=== PATIENT | male | born 1975 | race Caucasian/White ===

== ENCOUNTER 2021-09-14 23:21 | Emergency (ER) | payer OTHER ==
[2021-09-15 00:17] LABS: BASOPHIL 0.6 % (0-2); EOSINOPHIL 0.3 % (0-5); HCT 34.6 % (42.0-52.0); HGB 12.6 g/dl (13.2-18.0); LYMPHOCYTE 11.1 % (15-48); MCH 32.6 pg (25.0-31.0); MCHC 36.4 g/dL (32.0-36.0); MCV 89.6 fL (78.0-100.0); MPV 10.1 fL (6.0-9.5); NEUTROPHIL 80.1 % (41-80); NRBC 0; PLT 446 K/uL (150-400); RBC 3.86 M/uL (4.70-6.00); RDW 18.9 % (11.5-14.0); WBC 15.7 K/uL (4.0-10.5)
[2021-09-15 00:30] LABS: INR 1.44 (0.9-1.2); PROTHROMBIN TIME 16.8 SECONDS (11.8-13.4)
[2021-09-15 00:31] LABS: PTT 36.5 SECONDS (24.4-34.7)
[2021-09-15 00:39] LABS: BILIRUBIN 3+ mg/dL (NEGATIVE); BLOOD TRACE-INTACT Ery/uL (NEGATIVE); CLARITY HAZY (CLEAR); COLOR BROWN (YELLOW); GLUCOSE (U) 1+ mg/dL (NORMAL); LEUKOCYTES TRACE Leu/uL (NEGATIVE); NITRITE POSITIVE (NEGATIVE); PROTEIN 2+ mg/dL (NEGATIVE); SPECIFIC GRAVITY 1.025 (1.001-1.030); pH 6.5 (5.0-9.0)
[2021-09-15 00:48] LABS: BACTERIA 2+; URINARY RBC RARE
[2021-09-15 00:49] LABS: EPITHELIAL CASTS TRACE
[2021-09-15 00:50] LABS: MUCOUS MODERATE
[2021-09-15 00:55] LABS: ALBUMIN 2.3 g/dL (3.4-5.0); ALKALINE PHOSHATASE 157 U/L (46-116); ALT 68 U/L (16-63); AST 200 U/L (15-37); BUN 15 mg/dL (7-18); BUN/CREAT RATIO (CALC) 10.5 RATIO; CHLORIDE 97 mmol/L (98-107); CO2 (BICARBONATE) 24 mmol/L (21-32); CREATININE 1.43 mg/dL (0.67-1.17); GLOBULIN (CALCULATION) 3.9 g/dL; GLUCOSE 101 mg/dL (74-106); LIPASE 124 U/L (73-393); POTASSIUM 3.5 mmol/L (3.5-5.1); TOTAL PROTEIN 6.2 g/dL (6.4-8.2)
[2021-09-15 00:57] LABS: ACETAMINOPHEN (TYLENOL) < 2.0 ug/mL (10.0-30.0)
[2021-09-15 01:17] LABS: CORONAVIRUS 2019 SARS-COV-2 NEGATIVE (NEGATIVE); INFLUENZA A NAA NEGATIVE (NEGATIVE)
== END 2021-09-15 07:32 | disposition other institution (70) ==
LOC: FER 23:21
PROVIDERS: Internal Medicine; Nurse Practitioner Family
DX: K72.90 Hepatic failure, unspecified without coma (principal); R16.0 Hepatomegaly, not elsewhere classified; N39.0 Urinary tract infection, site not specified; Z20.822 Contact with and (suspected) exposure to COVID-19
CPT/HCPCS: 36415; 80053; 81001; 82140; 83690; 85025; 85610; 85730; G0480; J2543; U0002